=== PATIENT | female | born 1940 | race Caucasian/White ===

== ENCOUNTER → 2019-08-09 | Outpatient (CLI) | payer OTHER ==
[~2019-08-09] MED LIST: AMLODIPINE BESY10 MG PO; HYDROCHLOROTHIA25 MG PO; LEVOTHYROXINE100 MC1 PO; OMEPRAZOLE40 MG PO; OXYBUTYNIN CHLOR5 MG PO; PROBIOTIC & AC1 EACH PO; SULFAMETHOXAZO1 EAC1 PO; UNITHROID100 MCG PO
--- NOTE | 2019-08-09 11:08 | Diagnostic Imaging Report ---
Abdomen, one view Clinical indications: Calculus of kidney Comparison: 04/11/2017 Findings: A 5 mm calculus overlies the lower pole of left kidney. No renal calculi are identified overlying the right kidney. Patient is status post cholecystectomy. Bowel gas pattern is nonobstructed. No acute osseous abnormalities. Impression: 5 mm left renal calculus. Signed by: Jori Prince MD on 08/09/2019 11:04 AM
--- NOTE | 2019-08-09 15:42 | Diagnostic Imaging Report ---
Parathyroid Scan with SPECT Reason for exam: Hyperparathyroidism Radiopharmaceutical: Tc-99m sestamibi 27.5 mCi After intravenous administration of the radiopharmaceutical, immediate and 2-hour planar images of the neck and upper chest were obtained. Tomographic images of the neck and upper chest were also obtained following the initial planar images. On the initial planar images, a focus of increased tracer activity is seen in the lower pole of the left thyroid lobe. On the tomographic images, this increased focal accumulation of tracer is seen immediately posterior the lower pole of the left thyroid lobe. On the delayed planar images, washout of tracer from the thyroid is nearly complete with persistent tracer activity in the focus posterior to the lower pole of the left thyroid lobe. Impression: An enlarged hypermetabolic parathyroid gland is identified immediately posterior to the lower pole of the left thyroid lobe. Signed by: Dr. Barbie Ibarra M.D. on 08/09/2019 3:39 PM
== END ==
LOC: NM 10:28
PROVIDERS: ATTEND Urology
DX: N20.0 Calculus of kidney (principal); E21.3 Hyperparathyroidism, unspecified
CPT/HCPCS: 74018; 78071; A9500

== ENCOUNTER 2019-10-18 08:05 | Observation (INO) | payer MEDICARE, OTHER ==
[~2019-10-18] VITALS: Ht 165.1 cm; Wt 77.1 kg
--- OUTSIDE RECORDS SUMMARY | 2019-10-18 08:08 | XMS REPORT ---
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 Allergies, Adverse Reactions, Alerts Allergy Name Allergy Type Status Severity Reaction(s) Onset Date Inactive Date Treating Clinician Comments ciprofloxacin DA Active SV 2018-12-15 00:00:00 ciprofloxacin DA Active SV 2018-08-11 00:00:00 No Known Allergies DA Active U 2012-05-12 00:00:00 Medications This patient has no known medications. Encounters Start Date/Time End Date/Time Encounter Type Admission Type Attending Clinicians Care Facility Care Department Encounter ID 2019-09-17 11:41:07 Outpatient [id number] Results Test Description Test Time Test Comments Text Results Atomic Results Result Comments PARATHYROID IMAGING W SPECT 2019-08-09 15:34:[address] [address] Patient Name: DOMINIC MOORE MR #: [id number] : 1940 Age/Sex: 78/F Req #: [id number] Adm Physician: Ordered by: FRANCISCO MARTIN MD Report #: [id number] Location: [place] Room/Bed: Procedure: [id number] NM/PARATHYROID IMAGING W SPECT Exam Date: Exam Time: REPORT STATUS: Signed Parathyroid Scan with SPECT Reason for exam: Hyperparathyroidism Radiopharmaceutical: Tc-99m sestamibi 27.5 mCi After intravenous administration of the radiopharmaceutical, immediate and 2- hour planar images of the neck and upper chest were obtained. Tomographic images of the neck and upper chest were also obtained following the initial planar images. On the initial planar images, a focus of increased tracer activity is seen in the lower pole of the left thyroid lobe. On the tomographic images, this increased focal accumulation of tracer is seen immediately posterior the lower pole of the left thyroid lobe. On the delayed planar images, washout of tracer from the thyroid is nearly complete with persistent tracer activity in the focus posterior to the lower pole of the left thyroid lobe. Impression: An enlarged hypermetabolic parathyroid gland is identified immediately posterior to the lower pole of the left thyroid lobe. Signed by: Dr. Evelyn Ibarra M.D. on 08/09/2019 3:39 PM Dictated By: EVELYN IBARRA MD 38 Transcribed By: CHARO on 08/09/191538 COPY TO: FRANCISCO MARTIN MD [facility] ([facility]) 2019-08-09 11:02:00 [place] [address] Patient Name: DOMINIC MOORE MR #: [id number] : 1940 Age/Sex: 78/F Req #: [id number] Adm Physician: Ordered by: FRANCISCO MARTIN MD Report #: [id number] Location: [place] Room/Bed: Procedure: [id number] DX/ABDOMEN-1VIEW (KUB) Exam Date: 08/09/19 Exam Time: 1040 REPORT STATUS: Signed Abdomen, one view Clinical indications: Calculus of kidney Comparison: 04/11/2017 Findings: A 5 mm calculus overlies the lower pole of left kidney. No renal calculi are identified overlying the right kidney. Patient is status post cholecystectomy. Bowel gas pattern is nonobstructed. No acute osseous abnormalities. Impression: 5 mm left renal calculus. Signed by: Jori Davis MD on 08/09/2019 11:04 AM Dictated By: JORI DAVIS MD 110 Transcribed By: CHARO on 08/09/19 110 COPY TO: FRANCISCO MARTIN MD GALLBLADDER 2018-12-17 17:04:00 RUN DATE: 12/17/18 [employer] PAGE 1 RUN TIME: 1704 Specimen Inquiry RUN USER: INTERFACE PATIENT: DOMINIC MOORE LOC: [facility] U #: [id number] AGE/SX: 78/F ROOM: RE12/16/18REG DR: Ronen Pate MD : 42 BED: DIS: STATUS: DEP [facility] [place] TLOC: SPEC #: [id number] RECD: 12/16/18 STATUS: SOUDonny REQ #: [id number] WYATT: 12/16/[address]: Ronen Pate MD ENTERED: 12/16/18 SP TYPE: GALLBLADD OTHR DR: ORDERED: GROSS MARKERS: ABNORMAL TISSUE, GALLBLADDER PROCEDURES: GROSS (12/17/18) TISSUES: GALLBLADDER, NOS CLINICAL HISTORY COLLECTION DATE: 12/16/18 CHOLECYSTITIS, CHOLELITHIASIS FINAL DIAGNOSIS Gallbladder, cholecystectomy: CHRONIC CHOLECYSTITIS WITH FIBROTIC THICKENING OF GALLBLADDER WALL CHOLELITHIASIS NEGATIVE FOR MALIGNANCY RRB/antione A [address] MACROSCOPIC The specimen is received in formalin, labeled with the patient's name, and identified as "gallbladder". It consists of a previously opened ga llbladder which measures 10 X 3.3 X 2.2 cm. Within the gallbladder there is yellow-zacarias gallstone measuring 3 cm, additional yellow-zacarias gallstone fragments measuring 1.4 cm in aggregate, and some black calciferous material. The serosal surface has some adhesions. The gallbladder mucosa has a cobblestone appearance in areas and the gallbladder wall measures up to 0.4 cm in thickness. A 0.2 cm segment of cystic duct is attached to the gallbladder. Samples of the specimen are submitted for microscopic evaluation in a single cassette. GROSS PERFORMED AT [facility] [address] [place] [id number] [phone] CONTINUED ON NEXT PAGE RUN DATE: 12/17/18 [facility] PAGE 2 RUN TIME: 170 Specimen Inquiry RUN USER: INTERFACE SPEC #: [id number] PATIENT: DOMINIC MOORE #[id number] (Continued) MICROSCOPIC All of the stains, including any controls performed, stain appropriately. MICROSCOPIC PERFORMED AT [facility] [address] [place] [address] ()[phone] PERFORMING SITE Diagnosis performed at: [facility] [address] [facility], [place] [id number] Signed SIGNATURE ON FILE Jono Teran MD 12/17/18 4581 ------ END OF REPORT COMPREHENSIVE METABOLIC PANEL 2018-12-15 18:35:00 SODIUM (test code=NA) 140 mmol/L 136-145 POTASSIUM (test code=K) 3.7 mmol/L 3.5-5.1 CHLORIDE (test code=CL) 106.0 mmol/L 98-107 CARBON DIOXIDE (test code=CO2) 28.0 mmol/L 21-32 ANION GAP (test code=GAP) 9.7 10-20 GLUCOSE (test code=GLU) 85 mg/dL 74-106 BLOOD UREA NITROGEN (test code=BUN) 13 mg/dL 7-18 GLOMERULAR FILTRATION RATE (test code=GFR) > 60 mL/min >=60 Estimated GFR by using Modified MDRD formula.Chronic kidney disease is defined as either kidney damageor GFR <60 mL/min/1.73 m2 for >3 months. CREATININE (test code=CREAT) 0.90 mg/dL 0.55-1.02 Note change in reference range due to change in reagent. BUN/CREATININE RATIO (test code=BUN/CREA) 14.4 10-20 TOTAL PROTEIN (test code=PROT) 7.2 gram/dL 6.4-8.2 ALBUMIN (test code=ALB) 3.8 g/dL 3.4-5.0 GLOBULIN (test code=GLOB) 3.4 gram/dL 2.7-4.2 ALBUMIN/GLOBULIN RATIO (test code=A/G) 1.1 0.75-1.50 CALCIUM (test code=CA) 9.9 mg/dL 8.5-10.1 BILIRUBIN TOTAL (test code=BILT) 0.40 mg/dL 0.0-1.0 SGOT/AST (test code=AST) 17 IUnit/L 15-37 SGPT/ALT (test code=ALT) 24 IUnit/L 12-78 ALKALINE PHOSPHATASE TOTAL (test code=ALKP) 122 IUnit/L 45-117 Note change in reference range due to change in reagent. COMPREHENSIVE METABOLIC [id number] 18:26:00* Test Item Value Reference Range Comments SODIUM (test code=NA) 140 mmol/L 136-145 POTASSIUM (test code=K) 3.7 mmol/L 3.5-5.1 CHLORIDE (test code=CL) 106.0 mmol/L 98-107 CARBON DIOXIDE (test code=CO2) mmol/L 21-32 ANION GAP (test code=GAP) 10-20 GLUCOSE (test code=GLU) mg/dL 74-106 BLOOD UREA NITROGEN (test code=BUN) mg/dL 7-18 GLOMERULAR FILTRATION RATE (test code=GFR) mL/min >=60 CREATININE (test code=CREAT) mg/dL 0.55-1.02 BUN/CREATININE RATIO (test code=BUN/CREA) 10-20 TOTAL PROTEIN (test code=PROT) gram/dL 6.4-8.2 ALBUMIN (test code=ALB) g/dL 3.4-5.0 GLOBULIN (test code=GLOB) gram/dL 2.7-4.2 ALBUMIN/GLOBULIN RATIO (test code=A/G) 0.75-1.50 CALCIUM (test code=CA) mg/dL 8.5-10.1 BILIRUBIN TOTAL (test code=BILT) mg/dL 0.0-1.0 SGOT/AST (test code=AST) IUnit/L 15-37 SGPT/ALT (test code=ALT) IUnit/L 12-78 ALKALINE PHOSPHATASE TOTAL (test code=ALKP) IUnit/L 45-117 CBC W/AUTO [id number] 18:12:00* Test Item Value Reference Range Comments WHITE BLOOD CELL (test code=WBC) 6.4 K/mm3 4.5-12.5 RED BLOOD CELL (test code=RBC) 4.84 mill/mm3 3.7-5.2 HEMOGLOBIN (test code=HGB) 14.3 gram/dL 11.5-15.5 HEMATOCRIT (test code=HCT) 44.4 % 36.0-46.0 MEAN CELL VOLUME (test code=MCV) 91.7 fL 80-98 MEAN CELL HGB (test code=MCH) 29.5 picogram 27.0-33.0 MEAN CELL HGB CONCETRATION (test code=MCHC) 32.2 gram/dL 33.0-36.0 RED CELL DISTRIBUTION WIDTH (test code=RDW) 12.5 % 11.6-16.2 RED CELL DISTRIBUTION WIDTH SD (test code=RDW-SD) 42.5 fL 37.0-51.0 PLATELET COUNT (test code=PLT) 242 K/mm3 150-450 MEAN PLATELET VOLUME (test code=MPV) 10.5 fL 6.7-11.0 NEUTROPHIL % (test code=NT%) 58.6 % 39.0-69.0 IMMATURE GRANULOCYTE % (test code=IG%) 0.3 % 0.0-5.0 LYMPHOCYTE % (test code=LY%) 28.9 % 25.0-55.0 MONOCYTE % (test code=MO%) 8.6 % 0.0-10.0 EOSINOPHIL % (test code=EO%) 2.8 % 0.0-5.0 BASOPHIL % (test code=BA%) 0.8 % 0.0-1.0 NUCLEATED RBC % (test code=NRBC%) 0.0 % 0-0 NEUTROPHIL # (test code=NT#) 3.73 K/mm3 1.8-7.7 IMMATURE GRANULOCYTE # (test code=IG#) 0.02 x10 3/uL 0-0.03 LYMPHOCYTE # (test code=LY#) 1.84 K/mm3 1.0-5.0 MONOCYTE # (test code=MO#) 0.55 K/mm3 0-0.8 EOSINOPHIL # (test code=EO#) 0.18 K/mm3 0.0-0.5 BASOPHIL # (test code=BA#) 0.05 K/mm3 0.0-0.2 NUCLEATED RBC # (test code=NRBC#) 0.00 K/mm3 0.0-0.1 MANUAL DIFF REQUIRED (test code=MDIFF) NO CBC W/AUTO [id number] 18:10:00* Test Item Value Reference Range Comments WHITE BLOOD CELL (test code=WBC) K/mm3 4.5-12.5 RED BLOOD CELL (test code=RBC) mill/mm3 3.7-5.2 HEMOGLOBIN (test code=HGB) 14.3 gram/dL 11.5-15.5 HEMATOCRIT (test code=HCT) 44.4 % 36.0-46.0 MEAN CELL VOLUME (test code=MCV) fL 80-98 MEAN CELL HGB (test code=MCH) picogram 27.0-33.0 MEAN CELL HGB CONCETRATION (test code=MCHC) gram/dL 33.0-36.0 RED CELL DISTRIBUTION WIDTH (test code=RDW) % 11.6-16.2 RED CELL DISTRIBUTION WIDTH SD (test code=RDW-SD) fL 37.0-51.0 PLATELET COUNT (test code=PLT) K/mm3 150-450 MEAN PLATELET VOLUME (test code=MPV) fL 6.7-11.0 NEUTROPHIL % (test code=NT%) % 39.0-69.0 IMMATURE GRANULOCYTE % (test code=IG%) % 0.0-5.0 LYMPHOCYTE % (test code=LY%) % 25.0-55.0 MONOCYTE % (test code=MO%) % 0.0-10.0 EOSINOPHIL % (test code=EO%) % 0.0-5.0 BASOPHIL % (test code=BA%) % 0.0-1.0 NEUTROPHIL # (test code=NT#) K/mm3 1.8-7.7 LYMPHOCYTE # (test code=LY#) K/mm3 1.0-5.0 MONOCYTE # (test code=MO#) K/mm3 0-0.8 EOSINOPHIL # (test code=EO#) K/mm3 0.0-0.5 BASOPHIL # (test code=BA#) K/mm3 0.0-0.2
[2019-10-18 09:29] LABS: BASOPHILS % 0.5 % (0.0-1.0); EOSINOPHILS # (AUTO) 0.2 (0.0-0.4); EOSINOPHILS % 3.5 % (0.0-6.0); HEMATOCRIT 43.2 % (34.2-44.1); HEMOGLOBIN 14.1 g/dL (12.0-16.0); LYMPHOCYTES # (AUTO) 1.6 (1.0-3.2); LYMPHOCYTES % 26.6 % (18.0-39.1); MEAN CORPUSCULAR HEMOGLOBIN 29.8 pg (28-32); MEAN CORPUSCULAR HGB CONC 32.6 g/dL (31-35); MEAN CORPUSCULAR VOLUME 91.3 fL (81-99); MONOCYTES # (AUTO) 0.5 (0.2-0.8); MONOCYTES % 8.9 % (4.4-11.3); NEUTROPHILS # (AUTO) 3.7 (2.1-6.9); NEUTROPHILS % 60.3 % (38.7-80.0); PLATELET COUNT 211 x10e3/uL (140-360); RED BLOOD COUNT 4.73 x10e6/uL (3.6-5.1); RED CELL DISTRIBUTION WIDTH 12.3 % (11.7-14.4)
[2019-10-18 09:55] LABS: ALANINE AMINOTRANSFERASE 16 IU/L (0-55); ALBUMIN/GLOBULIN RATIO 1.4 (0.8-2.0); ALKALINE PHOSPHATASE 111 IU/L (40-150); ANION GAP 12.9 mmol/L (8-16); BLOOD UREA NITROGEN 13 mg/dL (7-26); BUN/CREATININE RATIO 18 (6-25); CALCIUM 10.7 mg/dL (8.4-10.2); CARBON DIOXIDE 28 mmol/L (22-29); CHLORIDE 105 mmol/L (98-107); CREATININE, SERUM 0.73 mg/dL (0.57-1.11); EST GLOMERULAR FILTRATION RATE > 60 ML/MIN (60-); GLUCOSE 110 mg/dL (74-118); POTASSIUM 3.9 mmol/L (3.5-5.1); SODIUM 142 mmol/L (136-145)
[2019-10-18] MEDS ORDERED: ACETAMINOPHEN 1000 MG/100 ML 100 ML IV ONE (10:29)
[2019-10-18] MEDS ORDERED: HYDROCODONE/APAP 7.5MG-325MG 1 EA TAB PO PRN (11:30)
[2019-10-18] MEDS ORDERED: ONDANSETRON HCL INJ 2MG/ML 2ML 2 MG/ML VIAL IV PRN (11:30)
[2019-10-18] MEDS ORDERED: HYDROMORPHONE 1MG/1ML INJ IV PRN (11:30)
[2019-10-18] MEDS ORDERED: KETOROLAC TROMETHAMINE 30 MG/ML VIAL ONE (13:43)
[2019-10-18] MEDS ORDERED: LIDOCAINE HCL 2% LOCAL INJ 5 ML SDV VIAL INJ ONE (13:43)
[2019-10-18] MEDS ORDERED: PROPOFOL IV EMULSION 10 MG/ML 20 ML VIAL ONE (13:43)
[2019-10-18] MEDS ORDERED: GLYCOPYRROLATE INJ 0.2 MG/ML VIAL ONE (13:43)
[2019-10-18] MEDS ORDERED: NEOSTIGMINE 1 MG/ML 10ML VIAL ONE (13:43)
[2019-10-18] MEDS ORDERED: SEVOFLURANE INHAL SOLN 250 ML PEN BTL ONE (13:43)
[2019-10-18] MEDS ORDERED: DEXAMETHASONE SOD PHOS INJ 4 MG/ML VIAL ONE (13:43)
[2019-10-18] MEDS ORDERED: ONDANSETRON HCL INJ 2MG/ML 2ML 2 MG/ML VIAL ONE (13:43)
[2019-10-18] MEDS ORDERED: ROCURONIUM BROMIDE 10 MG/ML 5ML VIAL ONE (13:43)
--- NOTE | 2019-10-18 14:17 | Operative Report ---
DATE OF PROCEDURE: 10/18/2019 SURGEON: Gato Gottlieb MD PREOPERATIVE DIAGNOSIS: Hyperparathyroidism with suspected left-sided parathyroid adenoma. POSTOPERATIVE DIAGNOSIS: Hyperparathyroidism with suspected left-sided parathyroid adenoma. OPERATION PERFORMED: Neck exploration with resection of left parathyroid adenoma. ASSISTANTS: 1. Dr. Ovidio Gottlieb. 2. DESMOND Haskins. ANESTHESIA: General. COMPLICATIONS: None. ESTIMATED BLOOD LOSS: Minimal. DESCRIPTION OF PROCEDURE: With the patient lying in bed in the supine position under good general endotracheal anesthesia, the neck was prepped with Betadine solution and draped in the usual manner. A collar incision was made. It was carried down through the subcutaneous tissue and through the platysma. Flaps were then developed superiorly and inferiorly. Hemostasis was ascertained. The strap muscles were then at the midline and the thyroid was then identified. The exploration of the left thyroid revealed rather smallish left lobe of the thyroid. The lower pole vessels were then divided between 3-0 silk ties and the thyroid was then swung medially. Looking posteriorly behind the thyroid, we immediately encountered a parathyroid mass, which was roughly about a centimeter and a half in size. On the sestamibi scan, they believe that this was a lower parathyroid, but this may indeed be an upper parathyroid. Exploration further down in the neck found the small sized normal-appearing parathyroid consistent with lower left-sided parathyroid, so this seemed to be an upper parathyroid, although it was actually lying rather low within the neck itself. The parathyroid adenoma was then slowly and carefully from all the surrounding structures, ligated with 3-0 silk and sent for frozen section, which came back consistent with parathyroid tissue pending permanent section. The whole area was thoroughly irrigated. Perfect hemostasis was ascertained and the wound was then closed in layers. The strap muscles were reapproximated at the midline with 3-0 Vicryl. The platysma was reapproximated with 3-0 Vicryl and the skin was closed with clips. A dressing was applied. The sponge, lap, and needle count was correct. The patient tolerated the procedure well and returned to the recovery room in stable condition. Gato Gottlieb MD JLR/MODL /[id number]
--- NOTE | 2019-10-18 16:20 | NUR ---
RECEIVED PATIENT FROM PACU. PATIENT A/O X3, EVEN RESPIRATIONS ON RA. LUNG SOUNDS CLEAR TO AUSCULTATION. NECK DRESSING CLEAN, DRY, AND INTACT. BOWEL SOUNDS PRESENT. RIGHT HAND 20 GAUGE IV WITH IVF @ 100 CC/HR. SCD'S PRESENT BILATERALLY. PATIENT HAS VOIDED SINCE SURGERY. PATIENT AMBULATES WITH STANDBY ASSISTANCE. NO PAIN AT THIS TIME. FAMILY AT BEDSIDE. BED LOW, WHEELS LOCKED, SIDE RAILS X2. CALL LIGHT IN REACH WILL CONTINUE TO MONITOR PATIENT.
[2019-10-18 16:30] VITALS: BP 108/55
[2019-10-18 17:18] VITALS: BP 108/55
[2019-10-18 17:19] VITALS: BP 108/55
[2019-10-18] MEDS: DEXTROSE 5%/LACTATED RINGERS 1,000 ML IV SCH (17:35)
[2019-10-18] MEDS ORDERED: ACETAMINOPHEN 1000 MG/100 ML IV PRN (18:00)
[2019-10-18] MEDS ORDERED: FENTANYL CITRATE/PF 100MCG/2 ML INJ ONE (18:08)
--- NOTE | 2019-10-18 19:20 | NUR ---
Patient visited in room during nursing rounds. Patient alert and oriented x3. No distress or discomfort noted. Pt resting in bed with HOB elevated. S/P Left Parathyroidectomy today (10/18/19). Pressure dressing covered with silk tape located anterior side of neck. Patient sister at bedside. On IVF (D5LR at 100ml/hr). Call rubio within reach. Will monitor closely.
[2019-10-18 20:00] VITALS: BP 119/60
--- NOTE | 2019-10-18 20:57 | NUR ---
Spoke with Dr. Gato Gottlieb and reported on calcium level of 9.4. MD aware and no new orders given.
[2019-10-18 21:00] VITALS: BP 119/60
[2019-10-19] VITALS (8 sets, daily range): BP systolic 99–121; BP diastolic 55–68
[2019-10-19] MEDS: DEXTROSE 5%/LACTATED RINGERS 1,000 ML IV SCH ×3 (03:13→16:36)
[2019-10-19 05:41] LABS: BASOPHILS % 0.1 % (0.0-1.0); HEMATOCRIT 36.8 % (34.2-44.1); HEMOGLOBIN 12.1 g/dL (12.0-16.0); LYMPHOCYTES # (AUTO) 1.2 (1.0-3.2); LYMPHOCYTES % 14.4 % (18.0-39.1); MEAN CORPUSCULAR HEMOGLOBIN 30.1 pg (28-32); MEAN CORPUSCULAR HGB CONC 32.9 g/dL (31-35); MEAN CORPUSCULAR VOLUME 91.5 fL (81-99); MONOCYTES # (AUTO) 0.7 (0.2-0.8); MONOCYTES % 8.8 % (4.4-11.3); NEUTROPHILS # (AUTO) 6.1 (2.1-6.9); NEUTROPHILS % 76.4 % (38.7-80.0); PLATELET COUNT 170 x10e3/uL (140-360); RED BLOOD COUNT 4.02 x10e6/uL (3.6-5.1); RED CELL DISTRIBUTION WIDTH 12.3 % (11.7-14.4)
[2019-10-19 06:03] LABS: ALANINE AMINOTRANSFERASE 19 IU/L (0-55); ALBUMIN 3.2 g/dL (3.5-5.0); ALBUMIN/GLOBULIN RATIO 1.3 (0.8-2.0); ALKALINE PHOSPHATASE 89 IU/L (40-150); ANION GAP 8.6 mmol/L (8-16); BLOOD UREA NITROGEN 10 mg/dL (7-26); BUN/CREATININE RATIO 14 (6-25); CALCIUM 8.3 mg/dL (8.4-10.2); CARBON DIOXIDE 29 mmol/L (22-29); CHLORIDE 108 mmol/L (98-107); CREATININE, SERUM 0.71 mg/dL (0.57-1.11); EST GLOMERULAR FILTRATION RATE > 60 ML/MIN (60-); GLUCOSE 122 mg/dL (74-118); POTASSIUM 3.6 mmol/L (3.5-5.1); SODIUM 142 mmol/L (136-145)
--- NOTE | 2019-10-19 07:00 | NUR ---
RECEIVED PATIENT AWAKE RESTING IN BED, NO S/S OF DISTRESS. BED LOW, WHEELS LOCKED, SIDE RAILS X2. CALL LIGHT IN REACH WILL CONTINUE TO MONITOR PATIENT.
[2019-10-19] MEDS ORDERED: HYDROCHLOROTHIAZIDE 25 MG TAB PO SCH (09:00)
[2019-10-19] MEDS ORDERED: AMLODIPINE BESYLATE 10 MG TAB PO SCH (09:00)
--- NOTE | 2019-10-19 13:45 | NUR ---
Visit made by the Spiritual Care Department Pastoral Visitor, Radha Ho. PV provided pastoral presence, prayer, hospitality, and supportive listening. Pastoral Visitor informed pt/family of the scope of Health Professional Services and availability. MEMO WHITE Nursery Supervisor Spiritual Care Department O: [phone] Pager: [phone] ([phone] number calling from)
--- NOTE | 2019-10-19 18:52 | NUR ---
SPOKE WITH DR. CASTILLO FROM OR. PATIENT OK TO HAVE REGULAR DIET, DR. CASTILLO WILL ROUND ON PATIENT TONSKY.
--- NOTE | 2019-10-19 19:15 | NUR ---
Patient visited in room during nursing rounds. Patient alert and oriented x3. No distress or discomfort noted. Pt resting in bed with HOB elevated. S/P Left Parathyroidectomy today (10/18/19). Pressure dressing covered with silk tape located anterior side of neck. Patient sister at bedside. On IVF (D5LR at 100ml/hr). Patient sister and daughter at bedside. Pt possibly to be discharged tonight. Awaiting on Dr. Juan Ramon Gottlieb to make rounds. Call rubio within reach. Will monitor closely.
--- NOTE | 2019-10-19 21:30 | NUR ---
Dr. Juan Ramon Gottlieb came and visited pt in room. MD informed pt he will order discharge for patient. Patient instructed to follow up with Dr. Juan Ramon Gottlieb on (10/21/19).
--- NOTE | 2019-10-19 21:53 | NUR ---
Patient provided copy of discharge papers. Pt telemetry taken off. IV on RFA 20g taken out. Site covered with gauze. Patient left unit in stable condition and escorted via private vehicle. Pt went home with daughter (Kiesha) and sister (Terri).
== END 2019-10-19 22:00 | disposition home or self-care (01) ==
LOC: OR 08:05 → PACU V 11:33 → MED/SURG 16:20
PROVIDERS: ADMIT Surgery; ATTEND Surgery
DX: E21.3 Hyperparathyroidism, unspecified (principal)
CPT/HCPCS: 36415 ×2; 60500; 80053 ×2; 82310 ×2; 85025 ×2; 88305; 88331; 93005; G0378 ×2; J0131; J1100; J1885; J2001; J2405; J2704; J2710; J3010; J7121 ×2

== ENCOUNTER → 2020-03-07 | Outpatient (CLI) | payer MEDICARE ==
--- NOTE | 2020-03-07 13:24 | Diagnostic Imaging Report ---
Exam: KUB - 2 views Indication: Renal calculus Comparison: KUB of 08/09/2019 Findings: Left lower pole renal calculus measures up to 6 mm. Nonobstructive bowel gas pattern. No free air. Status post cholecystectomy. Degenerative changes of the visualized spine. Impression: 6 mm left lower pole renal calculus. Signed by: Yuko Rincon MD on 03/07/2020 1:21 PM
== END ==
LOC: RAD 11:58
PROVIDERS: ATTEND Urology
DX: N20.0 Calculus of kidney (principal)
CPT/HCPCS: 74018

== ENCOUNTER → 2020-06-28 | Day surgery (SDC) | payer MEDICARE, OTHER ==
[2020-06-23 13:45] LABS: BASOPHILS # (AUTO) 0.1 (0.0-0.1); BASOPHILS % 0.5 % (0.0-1.0); EOSINOPHILS # (AUTO) 0.2 (0.0-0.4); EOSINOPHILS % 1.5 % (0.0-6.0); HEMATOCRIT 44.6 % (34.2-44.1); HEMOGLOBIN 14.5 g/dL (12.0-16.0); LYMPHOCYTES # (AUTO) 2.5 (1.0-3.2); LYMPHOCYTES % 23.1 % (18.0-39.1); MEAN CORPUSCULAR HEMOGLOBIN 29.5 pg (28-32); MEAN CORPUSCULAR HGB CONC 32.5 g/dL (31-35); MEAN CORPUSCULAR VOLUME 90.7 fL (81-99); MONOCYTES # (AUTO) 0.9 (0.2-0.8); MONOCYTES % 8.2 % (4.4-11.3); NEUTROPHILS % 65.7 % (38.7-80.0); PLATELET COUNT 267 x10e3/uL (140-360); RED BLOOD COUNT 4.92 x10e6/uL (3.6-5.1); RED CELL DISTRIBUTION WIDTH 12.3 % (11.7-14.4)
[2020-06-23 14:01] LABS: ANION GAP 13.7 mmol/L (8-16); BLOOD UREA NITROGEN 22 mg/dL (7-26); BUN/CREATININE RATIO 25 (6-25); CARBON DIOXIDE 30 mmol/L (22-29); CHLORIDE 98 mmol/L (98-107); CREATININE, SERUM 0.88 mg/dL (0.57-1.11); EST GLOMERULAR FILTRATION RATE > 60 ML/MIN (60-); GLUCOSE 107 mg/dL (74-118); POTASSIUM 3.7 mmol/L (3.5-5.1); SODIUM 138 mmol/L (136-145)
[~2020-06-28] MED LIST changes: +B&O 60MG R/S 60 MG SUPP PR ONE; +CEFEPIME 1GM/NS 0.9% 50 ML 50 ML IV ONE; +CRESTOR10 MG PO; +DEXAMETHASONE SOD PHOS INJ 4 MG/ML VIAL ONE; +IOPAMIDOL 300MG/ML 50ML INFUS..BTL IV ONE; +LIDOCAINE HCL 2% LOCAL INJ 5 ML SDV VIAL INJ ONE; +MIDAZOLAM HCL 2 MG/2 ML VIAL ONE; +ONDANSETRON HCL INJ 2MG/ML 2ML 2 MG/ML VIAL ONE; +PROPOFOL IV EMULSION 10 MG/ML 20 ML VIAL ONE; +SEVOFLURANE INHAL SOLN 250 ML PEN BTL ONE; +VITAMIN C1000 MG PO
[2020-06-28 08:40] VITALS: BP 119/62
== END | disposition home or self-care (01) ==
LOC: OR 05:23
PROVIDERS: ATTEND Urology
DX: N39.0 Urinary tract infection, site not specified (principal); N81.10 Cystocele, unspecified; N36.41 Hypermobility of urethra; N95.2 Postmenopausal atrophic vaginitis; N39.46 Mixed incontinence; I10 Essential (primary) hypertension; Z88.1 Allergy status to other antibiotic agents; Z01.810 Encounter for preprocedural cardiovascular examination; Z01.812 Encounter for preprocedural laboratory examination; Z01.818 Encounter for other preprocedural examination; Z11.59 Encounter for screening for other viral diseases; Z86.19 Personal history of other infectious and parasitic diseases; Z87.891 Personal history of nicotine dependence
CPT/HCPCS: 36415; 50590; 71046; 74018; 83970; 80048; 84550; 85025; 93005; C1758; J0692; J1100; J2001; J2250; J2405; J2704; Q9967; U0002

== ENCOUNTER → 2020-09-12 | Outpatient (CLI) | payer MEDICARE ==
[~2020-09-12] MED LIST changes: -B&O 60MG R/S 60 MG SUPP PR ONE; -CEFEPIME 1GM/NS 0.9% 50 ML 50 ML IV ONE; -DEXAMETHASONE SOD PHOS INJ 4 MG/ML VIAL ONE; -IOPAMIDOL 300MG/ML 50ML INFUS..BTL IV ONE; -LIDOCAINE HCL 2% LOCAL INJ 5 ML SDV VIAL INJ ONE; -MIDAZOLAM HCL 2 MG/2 ML VIAL ONE; -ONDANSETRON HCL INJ 2MG/ML 2ML 2 MG/ML VIAL ONE; -PROPOFOL IV EMULSION 10 MG/ML 20 ML VIAL ONE; -SEVOFLURANE INHAL SOLN 250 ML PEN BTL ONE
== END ==
LOC: RAD 12:58
PROVIDERS: ATTEND Urology
DX: N20.0 Calculus of kidney (principal)
CPT/HCPCS: 74018

== ENCOUNTER → 2021-01-10 | Day surgery (SDC) | payer MEDICARE ==
[2021-01-08 12:28] LABS: BASOPHILS # (AUTO) 0.1 (0.0-0.1); BASOPHILS % 0.8 % (0.0-1.0); EOSINOPHILS # (AUTO) 0.2 (0.0-0.4); EOSINOPHILS % 3.3 % (0.0-6.0); HEMOGLOBIN 13.8 g/dL (12.0-16.0); LYMPHOCYTES # (AUTO) 1.5 (1.0-3.2); LYMPHOCYTES % 24.1 % (18.0-39.1); MEAN CORPUSCULAR HEMOGLOBIN 29.5 pg (28-32); MEAN CORPUSCULAR HGB CONC 32.1 g/dL (31-35); MEAN CORPUSCULAR VOLUME 91.9 fL (81-99); MONOCYTES # (AUTO) 0.6 (0.2-0.8); MONOCYTES % 10.5 % (4.4-11.3); NEUTROPHILS # (AUTO) 3.7 (2.1-6.9); PLATELET COUNT 212 x10e3/uL (140-360); RED BLOOD COUNT 4.68 x10e6/uL (3.6-5.1); RED CELL DISTRIBUTION WIDTH 12.8 % (11.7-14.4)
[2021-01-08 12:49] LABS: ALANINE AMINOTRANSFERASE 15 IU/L (0-55); ALBUMIN 3.8 g/dL (3.5-5.0); ALBUMIN/GLOBULIN RATIO 1.3 (0.8-2.0); ALKALINE PHOSPHATASE 69 IU/L (40-150); ANION GAP 12.5 mmol/L (8-16); BLOOD UREA NITROGEN 13 mg/dL (7-26); BUN/CREATININE RATIO 17 (6-25); CALCIUM 9.1 mg/dL (8.4-10.2); CARBON DIOXIDE 27 mmol/L (22-29); CHLORIDE 105 mmol/L (98-107); CREATININE, SERUM 0.76 mg/dL (0.57-1.11); EST GLOMERULAR FILTRATION RATE > 60 ML/MIN (60-); GLUCOSE 108 mg/dL (74-118); POTASSIUM 4.5 mmol/L (3.5-5.1); SODIUM 140 mmol/L (136-145)
[~2021-01-10] MED LIST changes: +AMLODIPINE BESYL5 MG PO; +B&O 60MG R/S 60 MG SUPP PR ONE; +CEFTRIAXONE SOD 1 GM VIAL ONE; +DEXAMETHASONE SOD PHOS INJ 4 MG/ML VIAL ONE; +DYMISTA NASAL S23 GM INH; +EPHEDRINE SULFATE INJ 50 MG/ML VIAL ONE; +IOPAMIDOL 300MG/ML 50ML INFUS..BTL IV ONE; +LIDOCAINE HCL 2% LOCAL INJ 5 ML SDV VIAL INJ ONE; +ONDANSETRON HCL INJ 2MG/ML 2ML 2 MG/ML VIAL ONE; +POVIDONE IODINE 0.05% 0.05 % ML PO ONE; +PROPOFOL IV EMULSION 10 MG/ML 20 ML VIAL ONE; +SEVOFLURANE INHAL SOLN 250 ML PEN BTL ONE; +SODIUM CHLORIDE 0.9% 50ML 50 ML ONE
[2021-01-10 09:30] VITALS: BP 120/66
== END | disposition home or self-care (01) ==
LOC: OR 05:34
PROVIDERS: ATTEND Urology
DX: N20.0 Calculus of kidney (principal); N39.0 Urinary tract infection, site not specified; N36.41 Hypermobility of urethra; N81.10 Cystocele, unspecified; N81.6 Rectocele; N95.2 Postmenopausal atrophic vaginitis; Q62.8 Other congenital malformations of ureter; J44.9 Chronic obstructive pulmonary disease, unspecified; I10 Essential (primary) hypertension; E78.5 Hyperlipidemia, unspecified; E03.9 Hypothyroidism, unspecified; K76.0 Fatty (change of) liver, not elsewhere classified; M54.2 Cervicalgia; M54.9 Dorsalgia, unspecified; Z88.1 Allergy status to other antibiotic agents; Z01.810 Encounter for preprocedural cardiovascular examination; Z01.812 Encounter for preprocedural laboratory examination; Z20.822 Contact with and (suspected) exposure to COVID-19; Z85.72 Personal history of non-Hodgkin lymphomas; Z86.19 Personal history of other infectious and parasitic diseases; Z86.16 Personal history of COVID-19; Z87.891 Personal history of nicotine dependence
CPT/HCPCS: 36415; 50590; 80053; 83970; 84550; 85025; 93005; C1758; J0696; J1100; J2001; J2405; J2704; Q9967; U0002